=== PATIENT | female | born 1950 | race Caucasian/White ===

== ENCOUNTER → 2018-01-07 07:21 | Outpatient (CLI) | payer MEDICARE, SELFPAY ==
--- NOTE | 2018-01-07 08:00 | CT_ITS ---
CT lung screening EXAM: CT LUNG LOW DOSE WO CONTRAST HISTORY: Asymptomatic, 34 pack-year smoking history ITS.REASON: CURRENT TOBACCO USE ORDERING PHYSICIAN: Maurice Mon MD PATIENT AGE: 67 years COMPARISON: 09/24/2016 TECHNIQUE: The exam was performed on a GE Light Speed [address] scanner using 2.90 mGy CTDI. A low dose helical CT CHEST was performed on a multi-detector scanner. All CT scans at the facility use one or more dose reduction, viz: automated exposure control, ma/kV adjustment per patient size (including targeted exams where dose is matched to indication, i.e. head), or iterative reconstruction technique. The LDCT was performed in a facility that meets the criteria for the screening program. Data regarding this exam was submitted to ACR which is an approved registry. The order for this exam indicates that it came as a result of a lung cancer screening counseling shard decision-making visit that included all the elements required of such a visit including smoking cessation. The radiologist interpreting this exam meets the [facility] criteria for the LDCT lung cancer screening program. The exam is reported using the Lung-RADS classification scale and reported to the ACR registry. NOTE: This study was performed for the specific purposes of lung cancer screening and is not an alternative to diagnostic chest CT. RADIATION DOSE: CTDI vol(CT dose Index-volume) = 2.90mG DLP (Dose Length Product) = 100.18 mGcm FINDINGS: There are centrilobular emphysematous changes. Biapical fibrotic changes are noted. 5 mm ill-defined fissural nodule noted in the right minor fissure. There are scattered fibrotic changes. Groundglass opacity is present in the posterior segment of the right upper lobe not significant changed and may be due to an area of fibrosis. No suspicious pulmonary nodules and no significant change from the previous exam. Incidental note made of hypoattenuating left liver lesions largest at 2.6 cm slightly increased compared to the previous exam. IMPRESSION: 1. Lung RADS Category: 2, benign 2. Other findings: Centrilobular emphysema. Probable hepatic cyst slightly increased in size. Cystic nature may be confirmed with ultrasound RECOMMENDATIONS: 12 month LDCT follow-up Hepatic ultrasound
--- NOTE | 2018-01-07 08:30 | XR_ITS ---
XR DEXA axial skeleton HISTORY: ITS.REASON: OSTEOPAROSIS ORDERING PHYSICIAN: Maurice Mon MD PATIENT AGE: 67 years COMPARISON: None FINDINGS: The BMD measured at the right femoral neck is 0.848 g/cm squared with a T score of -1.4. This is considered Osteopenic according to the World Health Organization criteria. Fracture risk is Moderate. Treatment is advised. IMPRESSION: Osteopenia with moderate fracture risk. Treatment suggested. Recommend follow exam December 2019
--- NOTE | 2018-01-07 09:00 | MM_ITS ---
MM Dig screening mamm BI w/CAD CAD Screening COMPARISON: Digital mammograms with CAD 10/06/2016 04/06/2016 INDICATION: There is no personal or family history of breast cancer TECHNIQUE: Standard CC and MLO images were obtained. R2 CAD reviewed. FINDINGS: Moderate diffuse fiber glandular densities are seen in the central portions of both breast. There is a stable nodular densities in the central portion of the left breast. There is a nodular density superior portion left breast which was seen previously but there has been slight interval increase in size on the current study. It is difficult to definitely localize on the cc view. However I believe the patient should return for spot compression MLO view and 90 degrees lateral view and its this proves to be a true lesion targeted ultrasound may be necessary as well. There is a mole marker right breast. There is no new or suspicious lesion in either breast and no suspicious microcalcifications. IMPRESSION: Moderate breast density with possible change in density upper portion left breast only definitely seen on MLO view BI-RADS Category: 0 Need Additional Imaging Evaluation RECOMMENDED FOLLOW-UP: IMM - IMMEDIATE FOLLOW-UP RECOMMENDED (A letter has been sent to the patient regarding results of the study.)
--- NOTE | 2018-01-07 09:30 | US_ITS ---
US breast LT complete, US breast RT complete INDICATION: Breast cyst ORDERING PHYSICIAN: Maurice Mon MD PATIENT AGE: 67 years COMPARISON: 04/16/2016 TECHNIQUE: Routine breast ultrasound performed with axilla FINDINGS: Left breast: 6 mm cyst at 1:00, 4 mm cyst at 1:00, small nodes in the axilla. No suspicious nodules evident Right breast: 7 x 4 mm cyst at 12:00, 5 mm cyst at 9:00, 6 mm hypoechoic nodule at 10:00 stable since 04/16/2016 small nodes in the right axilla IMPRESSION: Benign appearing bilateral breast cysts and stable hypoechoic nodule at 10:00 in the right breast BI-RADS Category: 2 Benign Finding(s) RECOMMENDED FOLLOW-UP: 1YR - 1 YEAR FOLLOW-UP (A letter has been sent to the patient regarding results of the study.)
== END ==
PROVIDERS: Family Provider Family Medicine; PCP Family Medicine; Visit Provider Family Medicine
DX: Z12.2 Encounter for screening for malignant neoplasm of respiratory organs (principal); Z87.891 Personal history of nicotine dependence; Z12.31 Encounter for screening mammogram for malignant neoplasm of breast; M81.0 Age-related osteoporosis without current pathological fracture
CPT/HCPCS: 76641; 77067; 77080

== ENCOUNTER → 2018-08-18 16:09 | Outpatient (CLI) | payer MEDICARE, SELFPAY ==
--- NOTE | 2018-08-18 16:23 | XR_ITS ---
EXAM: XR cervical spine 5V HISTORY: Neck pain, left-sided neck pain radiating into the shoulder ITS.REASON: DISORDER OF NECK ORDERING PHYSICIAN: Maurice Mon MD PATIENT AGE: 68 years COMPARISON: None FINDINGS: There is straightening of the cervical lordosis. Degenerative disc disease is present at C3 C4, C4 C5, C5 C6, and C6-C7 with osteophytes anteriorly. No lytic or blastic change. Mild facet hypertrophic changes are present from C3 to C6. There are degenerative changes involving the left C1 and C2 lateral mass with hypertrophy and osteophyte formation with osteosclerosis. IMPRESSION: Multilevel cervical spondylosis with degenerative disc disease from C3 to C7 along with facet arthritic change
== END ==
PROVIDERS: PCP Family Medicine; Visit Provider Family Medicine
DX: M53.82 Other specified dorsopathies, cervical region (principal)
CPT/HCPCS: 72050

== ENCOUNTER → 2018-10-11 09:18 | Outpatient (POV) | payer MEDICARE, SELFPAY ==
[2018-10-11 09:29] VITALS: BP 171/79; PULSE 69; RESP 18; O2SAT 98
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
== END ==
PROVIDERS: PCP Family Medicine; Visit Provider Clinical Nurse Specialist Family Health
DX: M47.812 Spondylosis without myelopathy or radiculopathy, cervical region (principal); M54.02 Panniculitis affecting regions of neck and back, cervical region
CPT/HCPCS: 99202

== ENCOUNTER 2018-10-28 09:34 | Day surgery (SDC) | payer MEDICARE, SELFPAY ==
[2018-10-28 09:46] VITALS: BP 156/78; PULSE 70; RESP 18; TEMP 36.8; O2SAT 95; BMI 26.9
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
[2018-10-28 10:08] VITALS: BP 145/91; PULSE 66
[2018-10-28 10:09] VITALS: BP 147/90; PULSE 65; RESP 18; O2SAT 98
[2018-10-28 10:19] VITALS: BP 164/88; PULSE 69; RESP 16; TEMP 36.8; O2SAT 94
== END 2018-10-28 10:20 | disposition home or self-care (01) ==
LOC: SC.PAINP 09:36
PROVIDERS: Visit Provider Anesthesiology
DX: M50.30 Other cervical disc degeneration, unspecified cervical region (principal); M54.02 Panniculitis affecting regions of neck and back, cervical region; M47.892 Other spondylosis, cervical region
CPT/HCPCS: 64490; 64491; 64492; J1030; Q9966

== ENCOUNTER → 2018-11-14 11:17 | Outpatient (POV) | payer MEDICARE, SELFPAY ==
[2018-11-14 11:36] VITALS: BP 146/80; PULSE 70; RESP 18; O2SAT 98; BMI 26.9
--- NOTE | 2018-11-14 11:42 | HMH.PAINSOAP ---
[facility] Pain Management SOAP Note Subjective:: Patient is a pleasant 68-year-old white female who presents today for follow-up after cervical medial branch block. The patient says that she did not receive any relief from the block. She says that she had difficulty tolerating the procedure, and never felt better afterwards. She rates her pain a 8 out of 10 today. The patient says that she feels like there is a knot in her left shoulder area. Says that it feels tight and tense . Is tried anti-inflammatories and home stretching program. Her daughter is a physical therapist and has been doing therapy with her in the home setting. She is also tried a TENS unit with some relief. She has also attempted to use ice and heat to the area. ROS General: no recent weight change, no fever, no sleep disturbances Respiratory: no cough, no shortness of air, no recurring pulmonary infections Cardiovascular/Peripheral Vascular: No chest pain, No palpitations, no edema, no shortness of breath. Gastrointestinal: no incontinence, normal bowel movements reported Genitourinary: no incontinence Musculoskeletal: Left neck pain Psychiatric: normal mood/ affect, [denies depression], [denies anxiety] Neurological: [denies weakness in extremities], [denies balance issues] Objective:: Physical Exam General: Alert and oriented x3, no acute distress, pleasant and cooperative, [on room air] Lungs: Resps E/U, Symmetrical chest expansion, Eyes: PERRL Musculoskeletal: Flexion and extension of cervical spine somewhat guarded secondary to pain, deep tendon reflexes normal, strength in upper and lower extremities [5/5], [abnormal gait noted] Neurological: speech clear, 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 I think the patient would benefit given her symptomology. See the patient after the procedure. Is been instructed to call the office has any concerns prior to her next appointment. She is continuing home stretching program and anti-inflammatories. Dr. Rosario has reviewed this note and agrees with this plan of care. This note was dictated using voice recognition software and may contain errors or omissions
--- NOTE | 2018-11-14 11:47 | P.CONS_ITS ---
[facility] Pain Management SOAP Note Subjective:: Patient is a pleasant 68-year-old white female who presents today for follow-up after cervical medial branch block. The patient says that she did not receive any relief from the block. She says that she had difficulty tolerating the procedure, and never felt better afterwards. She rates her pain a 8 out of 10 today. The patient says that she feels like there is a knot in her left shoulder area. Says that it feels tight and tense . Is tried anti- inflammatories and home stretching program. Her daughter is a physical therapist and has been doing therapy with her in the home setting. She is also tried a TENS unit with some relief. She has also attempted to use ice and heat to the area. ROS General: no recent weight change, no fever, no sleep disturbances Respiratory: no cough, no shortness of air, no recurring pulmonary infections Cardiovascular/Peripheral Vascular: No chest pain, No palpitations, no edema, no shortness of breath. Gastrointestinal: no incontinence, normal bowel movements reported Genitourinary: no incontinence Musculoskeletal: Left neck pain Psychiatric: normal mood/ affect, [denies depression], [denies anxiety] Neurological: [denies weakness in extremities], [denies balance issues] Objective:: Physical Exam General: Alert and oriented x3, no acute distress, pleasant and cooperative, [on room air] Lungs: Resps E/U, Symmetrical chest expansion, Eyes: PERRL Musculoskeletal: Flexion and extension of cervical spine somewhat guarded secondary to pain, deep tendon reflexes normal, strength in upper and lower extremities [5/5], [abnormal gait noted] Neurological: speech clear, firer 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 I think the patient would benefit given her symptomology. See the patient after the procedure. Is been instructed to call the office has any concerns prior to her next appointment. She is continuing home stretching program and anti- inflammatories. Dr. Rosario has reviewed this note and agrees with this plan of care. This note was dictated using voice recognition software and may contain errors or omissions
== END ==
PROVIDERS: PCP Family Medicine; Visit Provider Clinical Nurse Specialist Family Health
DX: M79.18 Myalgia, other site (principal)
CPT/HCPCS: 99212

== ENCOUNTER → 2018-12-13 08:58 | Outpatient (POV) | payer MEDICARE, SELFPAY ==
[2018-12-13 09:12] VITALS: BP 142/67; PULSE 70; RESP 18; O2SAT 98; BMI 26.2
--- NOTE | 2018-12-13 09:18 | HMH.PAINSOAP ---
[facility] Pain Management SOAP Note Subjective:: Patient is a pleasant 68-year-old white female who presents today for follow-up after left trapezius trigger point injections. The patient says that she is doing much better since her injections. She says that these injections were 70% effective for her pain. She does rate her pain a 4 out of 10 today. She states that she has an area in the left side of her neck that is continuing to cause her pain that is radiating into her head and left orbital area. Patient also says that she hears a popping sound when she turns her neck . Patient says the headache worsens at night. The patient is continuing home stretching program, along with anti-inflammatories. She is also using a TENS unit at home, along with ice and heat to the area. Review of Systems General: No recent weight changes, no fever, no sleep disturbances Respiratory: No cough, no shortness of air, no recurring pulmonary infections Cardiovascular/peripheral vascular: No chest pain, no palpitations, no edema, no shortness of breath Gastrointestinal: No new onset incontinence, normal bowel movements reported Genitourinary: No new onset incontinence Musculoskeletal: Neck pain Psychiatric: Normal mood/affect Neurological: [Denies weakness in extremities], [denies balance issues] Objective:: Physical exam General: Alert and oriented x3, no acute distress, pleasant and cooperative, [on room air] Lungs: Respirations even and unlabored, symmetrical chest expansion Eyes: PERRL Musculoskeletal: Flexion and extension of cervical spine somewhat guarded secondary to pain, deep tendon reflexes normal, strength in upper and lower extremities [5/5], normal gait noted Neurological: Speech clear, 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 She will continue anti-inflammatories and NSAIDs. We will see the patient back after her MRI to reassess her symptoms at that time and discussed the plan of care. She been instructed to call the office if she has any concerns prior to her next appointment. The end
--- NOTE | 2018-12-13 09:21 | P.CONS_ITS ---
[facility] Pain Management SOAP Note Subjective:: Patient is a pleasant 68-year-old white female who presents today for follow-up after left trapezius trigger point injections. The patient says that she is doing much better since her injections. She says that these injections were 70% effective for her pain. She does rate her pain a 4 out of 10 today. She states that she has an area in the left side of her neck that is continuing to cause her pain that is radiating into her head and left orbital area. Patient also says that she hears a popping sound when she turns her neck . Patient says the headache worsens at night. The patient is continuing home stretching program, along with anti-inflammatories. She is also using a TENS unit at home, along with ice and heat to the area. Review of Systems General: No recent weight changes, no fever, no sleep disturbances Respiratory: No cough, no shortness of air, no recurring pulmonary infections Cardiovascular/peripheral vascular: No chest pain, no palpitations, no edema, no shortness of breath Gastrointestinal: No new onset incontinence, normal bowel movements reported Genitourinary: No new onset incontinence Musculoskeletal: Neck pain Psychiatric: Normal mood/affect Neurological: [Denies weakness in extremities], [denies balance issues] Objective:: Physical exam General: Alert and oriented x3, no acute distress, pleasant and cooperative, [on room air] Lungs: Respirations even and unlabored, symmetrical chest expansion Eyes: PERRL Musculoskeletal: Flexion and extension of cervical spine somewhat guarded secondary to pain, deep tendon reflexes normal, strength in upper and lower extremities [5/5], normal gait noted Neurological: Speech clear, 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 She will continue anti-inflammatories and NSAIDs. We will see the patient back after her MRI to reassess her symptoms at that time and discussed the plan of care. She been instructed to call the office if she has any concerns prior to her next appointment. The end
== END ==
PROVIDERS: PCP Family Medicine; Visit Provider Clinical Nurse Specialist Family Health
DX: M54.2 Cervicalgia (principal); M79.18 Myalgia, other site
CPT/HCPCS: 99212

== ENCOUNTER → 2018-12-28 07:38 | Outpatient (CLI) | payer MEDICARE, SELFPAY ==
--- NOTE | 2018-12-28 07:42 | MR_ITS ---
MR cervical spine wo con, MR 3-d myelogram/MRCP HISTORY: Neck pain X 1 yr. LT side neck pain that extends down into shoulder and up into left side of head. Constant pain when moving his head. Can only turn head so much. ITS.REASON: NECK PAIN ORDERING PHYSICIAN: Angelica Vides APRN PATIENT AGE: 68 years Comparison: X-RAY 08/18/18 TECHNIQUE: Standard multiplanar multiecho sequences are performed without contrast. 3-D MIP and myelographic images are also rendered and reviewed FINDINGS: There is reversal of the cervical lordosis. The craniocervical junction has an unremarkable appearance. No malalignment is evident. C1-C2: Prominent facet hypertrophic changes are present on the left at C1-C2 and or not imaged in the axial plane C2-C3: Minimal anterolisthesis of C2 of 3 mm with mild bulging disc. C3-C4: 3 mm anterolisthesis of C3 with minimal bulging disc. C4-C5: Degenerative disc disease with minimal bulging disc and ridging posteriorly at the disc space with mild bilateral lateral recess narrowing. C5-C6: Degenerative disc disease with mild bulging disc. There is a small left paracentral annular protrusion with mild left lateral recess and foraminal narrowing. C6-C7: Degenerative disc disease. C7-T1: Unremarkable. IMPRESSION: 1. Reversal cervical lordosis with mild anterolisthesis of C2 on C3 and C3 on C4 with prominent facet hypertrophic changes on the left at C1-C2 not imaged in the axial plane. Multilevel cervical spondylosis. PLEASE SEE ABOVE FOR DETAILED DESCRIPTION AT EACH LEVEL 2. C4-C5: Degenerative disc disease with minimal bulging disc and ridging posteriorly at the disc space with mild bilateral lateral recess narrowing. 3. C5-C6: Degenerative disc disease with mild bulging disc. There is a small left paracentral annular disc protrusion with mild left lateral recess and foraminal narrowing 4. No extruded herniated disc or canal stenosis.
== END ==
PROVIDERS: PCP Family Medicine; Visit Provider Clinical Nurse Specialist Family Health
DX: M54.2 Cervicalgia (principal)
CPT/HCPCS: 72141; 76376

== ENCOUNTER → 2019-01-03 08:57 | Outpatient (POV) | payer MEDICARE, SELFPAY ==
[2019-01-03 09:31] VITALS: BP 121/51; PULSE 67; RESP 18; O2SAT 98; BMI 24.0
--- NOTE | 2019-01-03 09:55 | HMH.PAINSOAP ---
[facility] Pain Management SOAP Note Subjective:: Patient is a pleasant 68-year-old white female who presents today for follow-up after cervical MRI. We discussed her cervical MRI and we also discussed adding some anti-inflammatories to her daily regimen. Patient is interested in doing this. She rates her pain today a 3 out of 10. However over the weekend it got quite extreme most of her pain is achy in nature causing headaches. ROS General: no recent weight change, no fever, no sleep disturbances Respiratory: no cough, no shortness of air, no recurring pulmonary infections Cardiovascular/Peripheral Vascular: No chest pain, No palpitations, no edema, no shortness of breath. Gastrointestinal: no incontinence, normal bowel movements reported Genitourinary: no incontinence Musculoskeletal: Neck pain Psychiatric: normal mood/ affect Neurological: [denies weakness in extremities], [denies balance issues] Objective:: Physical Exam General: Alert and oriented x3, no acute distress, pleasant and cooperative, [on room air] Lungs: Resps E/U, Symmetrical chest expansion, Eyes: PERRL Musculoskeletal: Flexion and extension of cervical spine somewhat guarded secondary to pain, deep tendon reflexes normal, strength in upper and lower extremities [5/5], normal gait noted Neurological: speech clear, special events fundraiser equal, no gross sensory deficits Assessment:: 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 twice daily we will see her back in 1 months and reassess her at that time. She is been instructed to call the office if she has any issues prior to her next appointment. Dr. Rosario has reviewed this note and agrees with this plan of care. This note was dictated using voice recognition software and may contain errors or omissions Pain Management Hx Components *Have you ever received a pneumonia vaccine?: Yes *Have you received a flu vaccine this season?: Yes - *Social History *Occupational Status:: other *Travel in the last 8 weeks: None
--- NOTE | 2019-01-03 09:59 | P.CONS_ITS ---
[facility] Pain Management SOAP Note Subjective:: Patient is a pleasant 68-year-old white female who presents today for follow-up after cervical MRI. We discussed her cervical MRI and we also discussed adding some anti-inflammatories to her daily regimen. Patient is interested in doing this. She rates her pain today a 3 out of 10. However over the weekend it got quite extreme most of her pain is achy in nature causing headaches. ROS General: no recent weight change, no fever, no sleep disturbances Respiratory: no cough, no shortness of air, no recurring pulmonary infections Cardiovascular/Peripheral Vascular: No chest pain, No palpitations, no edema, no shortness of breath. Gastrointestinal: no incontinence, normal bowel movements reported Genitourinary: no incontinence Musculoskeletal: Neck pain Psychiatric: normal mood/ affect Neurological: [denies weakness in extremities], [denies balance issues] Objective:: Physical Exam General: Alert and oriented x3, no acute distress, pleasant and cooperative, [on room air] Lungs: Resps E/U, Symmetrical chest expansion, Eyes: PERRL Musculoskeletal: Flexion and extension of cervical spine somewhat guarded secondary to pain, deep tendon reflexes normal, strength in upper and lower extremities [5/5], normal gait noted Neurological: speech clear, orchestra leader equal, no gross sensory deficits Assessment:: 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 twice daily we will see her back in 1 months and reassess her at that time. She is been instructed to call the office if she has any issues prior to her next appointment. Dr. Rosario has reviewed this note and agrees with this plan of care. This note was dictated using voice recognition software and may contain errors or omissions Pain Management Hx Components *Have you ever received a pneumonia vaccine?: Yes *Have you received a flu vaccine this season?: Yes - *Social History *Occupational Status:: other *Travel in the last 8 weeks: None
== END ==
PROVIDERS: PCP Family Medicine; Visit Provider Clinical Nurse Specialist Family Health
DX: M50.30 Other cervical disc degeneration, unspecified cervical region (principal); M54.02 Panniculitis affecting regions of neck and back, cervical region
CPT/HCPCS: 99212

== ENCOUNTER → 2019-01-16 06:58 | Outpatient (CLI) | payer MEDICARE, SELFPAY ==
[2019-01-16 11:04] LABS: Hemoglobin A1C 6.4 % (0.0-7.0)
[2019-01-16 17:34] LABS: Alanine Aminotransferase 26 U/L (12-78); Albumin Level 3.5 gm/dL (3.4-5.0); Albumin/Globulin Ratio 1.2 (1.1-1.8); Alkaline Phosphatase 65 U/L (46-116); Anion Gap 9.5 mEq/L (5-15); Aspartate Amino Transferase 14 U/L (15-37); Bilirubin,Total 0.3 mg/dL (0.2-1.0); Blood Urea Nitrogen 18 mg/dL (7-18); Carbon Dioxide 32 mmol/L (21.0-32.0); Chloride 102 mmol/L (98-107); Chol/HDL Ratio 4.1 (1-3.5); Cholesterol 195 mg/dL (140-200); Creatinine,Serum 0.66 mg/dL (0.55-1.02); Estimated Glomerular Filt Rate 89 ml/min (>60); GFR (African American) 108 ML/MIN (>60); Glucose 116 mg/dL (74-106); HDL Cholesterol 48 mg/dL (29-89); LDL Cholesterol 113 mg/dL (0-130); Potassium 4.5 mmoL/L (3.5-5.1); Sodium 139 mmol/L (136-145); Thyroid Stimulating Hormone 3.78 uIU/ml (0.358-3.740); Total Protein,Serum 6.5 gm/dL (6.4-8.2); Triglycerides 168 mg/dL (30-200); VLDL Cholesterol 34 mg/dL (0-40)
[2019-01-16 20:37] LABS: Creatinine,Urine Random 56 mg/dL (20-320)
[2019-01-18 00:25] LABS: Vitamin D 25 Hydroxy 35.3 ng/mL (30.0-100.0)
[2019-01-18 00:28] LABS: Microalbumin, Urine 5.4 ug/mL (Not Estab.)
== END ==
PROVIDERS: Visit Provider Family Medicine
DX: R73.01 Impaired fasting glucose (principal); I10 Essential (primary) hypertension; K76.89 Other specified diseases of liver; M81.0 Age-related osteoporosis without current pathological fracture
CPT/HCPCS: 36415; 80053; 80061; 82043; 82570; 82652; 83036; 84443

== ENCOUNTER → 2019-01-18 07:17 | Outpatient (CLI) | payer MEDICARE, SELFPAY ==
--- NOTE | 2019-01-18 08:00 | US_ITS ---
PROCEDURE: US ABDOMEN LIMITED CLINICAL INDICATION: LIVER CYSTS Multiple liver lesions COMPARISON: ABDPELW/O CT ABD PELVIS W/O CONTRAST from 07/24/[address] lung screening from 01/07/2018 FINDINGS: PANCREAS: Unremarkable. No obvious mass or abnormal fluid collection. No ductal dilatation LIVER: There are multiple hyperechoic foci within the liver including a 2.6 cm and a 1.2 cm hyperechoic foci in the left lobe. These may represent hemangiomas due to their hyperechoic nature. RIGHT KIDNEY: Unremarkable. Normal size and echogenicity. No hydronephrosis GALLBLADDER: No gallstones, gallbladder wall thickening, pericholecystic fluid, or biliary dilatation. IMPRESSION: Hepatic lesions correspond a hyperechoic nodules and may represent hemangiomas. Consider confirmation with MRI with hemangioma protocol without and with enhancement due to the slight increase in size. Dictated by: Guero Calderon MD 01/18/2019 17:43 Signed by: <Electronically signed by Guero Calderon MD in [place]> 01/18/2019 17:43
== END ==
PROVIDERS: PCP Family Medicine; Visit Provider Family Medicine
DX: K76.89 Other specified diseases of liver (principal)
CPT/HCPCS: 76705

== ENCOUNTER → 2019-01-24 12:07 | Outpatient (CLI) | payer MEDICARE, SELFPAY ==
--- NOTE | 2019-01-24 12:22 | US_ITS ---
PROCEDURE: MM DIG MAMM BI DX W/CAD CLINICAL INDICATION: ABNORMAL MAMM Follow-up abnormal mammogram COMPARISON: [facility] DIG MAMM-SCREEN IVANIA from 03/15/2013 [facility] DIG MAMM-SCREEN IVANIA from 04/03/2015 [facility]B DIG MAMM-SCREEN IVANIA from 04/06/2016 [facility] DIG MAMM-DX IVANIA W/CAD from 10/06/2016 BREASTRT US breast RT complete from 01/07/2018 [facility] MM Dig screening mamm BI w/CAD from 01/07/2018 BREASTLT US breast LT complete from 01/07/2018 US BREAST LT COMPLETE from 01/24/2019 US BREAST RT COMPLETE from 01/24/2019 TECHNIQUE: Standard images are performed along with spot compression views and bilateral breast ultrasound and compared to multiple previous exams FINDINGS: Right breast: Asymmetric density is present in the retroareolar region slightly inferior. This has been present dating back to 04/06/2016 and partially compresses out and is likely related to fibroglandular tissue. Asymmetric densities in the lateral and medial aspect of the right breast appear to compress out is fibroglandular tissue and not felt to be significantly changed Right breast ultrasound: 4 mm x 6 mm cyst at 12 o'clock. Oval hypoechoic 7 mm abnormality at 9 o'clock not significantly changed. No suspicious nodules evident. There is an area at 10 o'clock which is 5 x 3 mm hypoechoic and may be related to fibroglandular tissue. Left breast: Nodular density is present in the upper aspect of the left breast at 11 mm similar to multiple previous exams. There is asymmetric density in the central left breast on the MLO view. Stable nodular density is present in the central left breast posteriorly at 7 mm. Nodular density noted laterally at 9 mm unchanged Left breast ultrasound: At 12 o'clock there is a hypoechoic nodule at 1 x 0.4 cm and may represent a complex cyst. At 1 o'clock there is a 5 mm hypoechoic nodule suggestive of a small cyst. At 2 o'clock there is an 8 mm. IMPRESSION: There are bilateral stable nodular opacities with multiple small bilateral cyst on the mammogram. No suspicious lesions are evident. There is a new nodular density in the central aspect of the left breast which may correspond to a complex cyst noted on the ultrasound at 12 o'clock. Recommend six-month mammographic and sonographic follow-up of the left breast. BI-RAD Category: 3 Probably Benign Finding Short Term Follow-up FOLLOW-UP: 6M 6 Month Follow-up (A letter has been sent to the patient regarding results of the study.) The all right at delivery rarely checks the colon with an acute thank you appreciate you walk held and the the the Dictated by: Guero Calderon MD 01/27/2019 11:59 Signed by: <Electronically signed by Guero Calderon MD in [place]> 01/27/2019 11:59
--- NOTE | 2019-01-24 12:31 | CT_ITS ---
PROCEDURE: CT LUNG SCREENING CLINICAL INDICATION: CURRENT TOBACCO USE Thirty-four pack-year smoking history, asymptomatic for lung cancer COMPARISON: LUNGSCREEN CT lung screening from 01/07/2018 TECHNIQUE: The exam was performed on a [employer] Speed [address] scanner using 2.90 mGy CTDI. A low dose helical CT CHEST was performed on a multi-detector scanner. All CT scans at the facility use one or more dose reduction, viz: automated exposure control, ma/kV adjustment per patient size (including targeted exams where dose is matched to indication, i.e. head), or iterative reconstruction technique. The LDCT was performed in a facility that meets the criteria for the screening program. Data regarding this exam was submitted to ACR which is an approved registry. The order for this exam indicates that it came as a result of a lung cancer screening counseling shard decision-making visit that included all the elements required of such a visit including smoking cessation. The radiologist interpreting this exam meets the CMS criteria for the LDCT lung cancer screening program. The exam is reported using the Lung-RADS classification scale and reported to the ACR registry. NOTE: This study was performed for the specific purposes of lung cancer screening and is not an alternative to diagnostic chest CT. RADIATION DOSE: CTDI vol(CT dose Index-volume) = 2.90mG DLP (Dose Length Product) = 96.38 mGcm FINDINGS: COPD with scattered scarring. Ground-glass opacity right upper lobe posteriorly unchanged. Chronic volume loss in the medial aspect of the lingula unchanged no suspicious nodules. There are several low-density lesions in the left hepatic lobe which may be due to cyst the largest of which is 2.7 cm not significantly changed. OTHER FINDINGS: No other pertinent findings evident. IMPRESSION: Lung rads category 2 benign findings with no change Recommendations: 12 month LDCT follow-up Dictated by: Guero Calderon MD 01/29/2019 12:42 Signed by: <Electronically signed by Guero Calderon MD in [place]> 01/29/2019 12:42
== END ==
PROVIDERS: PCP Family Medicine; Visit Provider Family Medicine
DX: R92.8 Other abnormal and inconclusive findings on diagnostic imaging of breast (principal); Z87.891 Personal history of nicotine dependence; Z12.2 Encounter for screening for malignant neoplasm of respiratory organs
CPT/HCPCS: 76641; 77066

== ENCOUNTER → 2019-01-31 09:20 | Outpatient (POV) | payer MEDICARE, SELFPAY ==
--- NOTE | 2019-01-31 10:13 | HMH.PAINSOAP ---
[facility] Pain Management SOAP Note Subjective:: Patient is a pleasant 69-year-old white female who presents today for follow-up after starting diclofenac 75 mg 1 p.o. twice daily. She states that it helped her significantly she does rate her pain a 5 out of 10 she states that it comes in waves. Some days she has no pain and sedation is worse. She is using moist heat along with additional Tylenol if needed. Patient overall doing quite well. Patient uninterested in a neurosurgical consultation at this time due to the fact that her is ill. ROS General: no recent weight change, no fever, no sleep disturbances Respiratory: no cough, no shortness of air, no recurring pulmonary infections Cardiovascular/Peripheral Vascular: No chest pain, No palpitations, no edema, no shortness of breath. Gastrointestinal: no incontinence, normal bowel movements reported Genitourinary: no incontinence Musculoskeletal: Neck pain Psychiatric: normal mood/ affect Neurological: [denies weakness in extremities], [denies balance issues] Objective:: Physical Exam General: Alert and oriented x3, no acute distress, pleasant and cooperative, [on room air] Lungs: Resps E/U, Symmetrical chest expansion, Eyes: PERRL Musculoskeletal: Flexion and extension of cervical spine somewhat guarded secondary to pain, deep tendon reflexes normal, strength in upper and lower extremities [5/5], normal gait noted Neurological: speech clear, hardware engineer equal, no gross sensory deficits Assessment:: Degenerative disc disease cervical spinal cervical radiculopathy cervical facet arthropathy Plan:: We will continue the patient on diclofenac 75 mg 1 p.o. twice daily. Patient denies side effects or medication. We will see her back in 3 months reassess her symptoms at that time she is been instructed to call the office if she has any issues prior to her next appointment. Dr. Rosario has reviewed this note and agrees with this plan of care. This note was dictated using voice recognition software and may contain errors or omissions Pain Management Hx Components *Have you ever received a pneumonia vaccine?: Yes *Have you received a flu vaccine this season?: Yes - *Social History *Occupational Status:: other *Travel in the last 8 weeks: None
[2019-01-31 11:13] VITALS: BP 153/98; PULSE 67; RESP 18; O2SAT 98; BMI 27.4
== END ==
PROVIDERS: PCP Family Medicine; Visit Provider Clinical Nurse Specialist Family Health
DX: M50.10 Cervical disc disorder with radiculopathy, unspecified cervical region (principal); M12.88 Other specific arthropathies, not elsewhere classified, other specified site
CPT/HCPCS: 99212

== ENCOUNTER → 2019-02-02 08:50 | Outpatient (CLI) | payer MEDICARE, SELFPAY ==
--- NOTE | 2019-02-02 08:55 | MR_ITS ---
PROCEDURE: MR ABDOMEN WO/W CON CLINICAL INDICATION: NEOPLASMS OF UNCERTAIN BEHAVIOR OF LIVER Hemangioma protocol, liver lesion COMPARISON: ABDPELW/O CT ABD PELVIS W/O CONTRAST from 07/24/2013 US ABDOMEN LIMITED from 01/18/2019 CT LUNG SCREENING from 01/24/2019 TECHNIQUE: Routine multiplanar multi echo sequences are performed without and with gadolinium enhancement. Hemangioma protocol performed with dynamic post enhanced images FINDINGS: There are multiple there is liver lesions noted the largest in the left hepatic lobe laterally and superiorly measuring 2.6 cm corresponding to the abnormality noted on the recent chest CT. Just anterior to this is a sub cm area of decreased T1 signal. Peripheral area of decreased T1 signal noted in the right hepatic lobe at 5 mm. There is an additional 1 cm area of decreased intensity on the T1 weighted images in the left hepatic lobe inferiorly. These areas show increased T2 signal with no enhancement. The larger area in the left hepatic lobe shows slight decreased T1 signal and is slightly hypointense on T2 and does not appear to represent a simple cyst. The on the delayed post enhanced images this area does not significantly change. This is well-circumscribed in addition, there is a 1.4 cm area of decreased T1 and increased T2 signal in the right hepatic lobe centrally. There is signal dropout on the out of phase images. No other significant anomalies are evident. IMPRESSION: There are multiple liver lesions. Most of the smaller lesions are felt represent cyst. The larger lesion in the left hepatic lobe at 2.6 cm does not demonstrate normal characteristic signal intensity and imaging characteristics of a hemangioma. This lesion may represent a lipid rich hepatic adenoma. Suggest 6 month follow-up to confirm stability. Dictated by: Guero Calderon MD 02/03/2019 12:13 Electronically signed by Guero Calderon MD in [place] 02/08/2019 14:26
== END ==
PROVIDERS: PCP Family Medicine; Visit Provider Family Medicine
DX: D37.6 Neoplasm of uncertain behavior of liver, gallbladder and bile ducts (principal)
CPT/HCPCS: 74183; A9576

== ENCOUNTER → 2019-08-01 12:23 | Outpatient (CLI) | payer MEDICARE, SELFPAY ==
--- NOTE | 2019-08-01 12:28 | MM_ITS ---
PROCEDURE: MM DIG MAMM DX UNILAT LT CAD Digital Breast Tomosynthesis Included CLINICAL INDICATION: ABNORMAL MAMM Follow-up possible new nodular density left breast COMPARISON: DMDB DIG MAMM-DX IVANIA W/CAD from 10/06/2016 [facility] MM Dig screening mamm BI w/CAD from 01/07/2018 US BREAST LT COMPLETE from 01/24/2019 MM DIG MAMM BI DX W/CAD from 01/24/2019 and ultrasound left breast same date TECHNIQUE: Standard CC and MLO images and 3D Tomosynthesis was obtained. R2 CAD reviewed. FINDINGS: Somewhat heterogenic fibroglandular densities are noted as seen previously. Puma images are most helpful demonstrating a stable nodular density upper outer quadrant possibly an intramammary node. The other possible new density central portion of the breast appears to represent 2 small cystic structures or possibly a solitary complex cyst with septation. There is no suspicious lesion and no suspicious microcalcifications. IMPRESSION: Stable nodularity with no suspicious lesions seen BI-RAD Category: 2 Benign Finding(s) FOLLOW-UP: 6M 6Month Follow-up to return to normal yearly screening schedule (A letter has been sent to the patient regarding results of the study.) Dictated by: Dr. Rahat Foster MD 08/04/2019 09:[address] Rahat Foster MD in [place] 08/04/2019 09:58
--- NOTE | 2019-08-01 12:28 | US_ITS ---
PROCEDURE: US BREAST LT COMPLETE CLINICAL INDICATION: ABNORMAL MAMM COMPARISON: US BREAST RT COMPLETE from 01/24/2019 MM DIG MAMM BI DX W/CAD from 01/24/2019 US BREAST LT COMPLETE from 01/24/2019 MM DIG MAMM DX UNILAT LT CAD from 08/01/2019 FINDINGS: Stable hypoechoic oval lesion 1 o'clock position outer breast measuring 1.0 x 0.6 by 0.8 cm corresponding in size and location to the density on the mammogram same date. This has well-defined borders and internal echoes and likely is a fibroadenoma or possibly intramammary node. There is a tiny hypoechoic lesion at the 1 o'clock position in the nipple too small to characterize but likely a small cyst. IMPRESSION: Stable appearing ultrasound and I feel no additional ultrasound follow-up is indicated Dictated by: Dr. Rahat Foster MD 08/04/2019 13:[address] Rahat Foster MD in [place] 08/04/2019 13:38
== END ==
PROVIDERS: PCP Family Medicine; Visit Provider Family Medicine
DX: R92.8 Other abnormal and inconclusive findings on diagnostic imaging of breast (principal)
CPT/HCPCS: 76641; 77061; 77065; G0279

== ENCOUNTER → 2019-09-25 07:09 | Outpatient (CLI) | payer MEDICARE, SELFPAY ==
[2019-09-25 09:45] LABS: Chloride 100 mmol/L (98-107); Potassium 4.3 mmoL/L (3.5-5.1); Sodium 137 mmol/L (136-145)
[2019-09-25 09:48] LABS: Alanine Aminotransferase 15 U/L (12-78); Albumin Level 3.8 g/dl (3.5-5.0); Albumin/Globulin Ratio 1.4 (1.1-1.8); Alkaline Phosphatase 76 U/L (38-126); Anion Gap 10.3 mEq/L (5-15); Aspartate Amino Transferase 18 U/L (14-36); Bilirubin,Total 0.3 mg/dl (0.2-1.3); Blood Urea Nitrogen 16 mg/dl (7-17); Calcium 9.4 mg/dl (8.4-10.2); Carbon Dioxide 31 mmol/L (22.0-30.0); Cholesterol 173 mg/dl (140-200); Estimated Glomerular Filt Rate 99 ml/min (>60); GFR (African American) 120 ML/MIN (>60); Globulin 2.7 g/dL (1.3-3.2); Glucose 139 mg/dl (74-100); Total Protein,Serum 6.5 g/dl (6.3-8.2); Triglycerides 189 mg/dl (30-150); VLDL Cholesterol 38 mg/dL (0-40)
[2019-09-25 09:49] LABS: Chol/HDL Ratio 2.9 (1-3.5); HDL Cholesterol 59 mg/dl (40-60)
[2019-09-25 10:00] LABS: Direct LDL Cholesterol 110.85 mg/dL (100-129)
[2019-09-26 12:43] LABS: Vitamin D 25 Hydroxy 39.2 ng/mL (30.0-100.0)
== END ==
PROVIDERS: Visit Provider Family Medicine
DX: R73.01 Impaired fasting glucose (principal); I10 Essential (primary) hypertension; E78.1 Pure hyperglyceridemia; M81.0 Age-related osteoporosis without current pathological fracture
CPT/HCPCS: 36415; 80053; 80061; 82652; 83036

== ENCOUNTER → 2020-04-17 12:19 | Outpatient (CLI) | payer MEDICARE, SELFPAY ==
--- NOTE | 2020-04-17 13:00 | MM_ITS ---
PROCEDURE: MM DIG SCREENING MAMM BI W/CAD Digital Breast Tomosynthesis Included CLINICAL INDICATION: SCREENING,LT BREAST CYST No personal or family history of breast cancer. There has been a previous cyst aspiration right breast with findings the patient currently is on Premarin COMPARISON: MG [facility] MM Dig screening mamm BI w/CAD from 01/07/2018 MG MM DIG MAMM BI DX W/CAD from 01/24/2019 MG MM DIG MAMM DX UNILAT LT CAD from 08/01/2019 TECHNIQUE: Standard CC and MLO images and 3D Tomosynthesis was obtained. R2 CAD reviewed. FINDINGS: Moderate diffuse fibroglandular densities are seen in the central portions of breasts. There is a mole marker right breast. There are stable benign-appearing nodular densities left breast best seen on the enedina images.. There is no new or suspicious lesion in either breast and no suspicious microcalcifications IMPRESSION: Fibrofatty parenchyma with no suspicious lesions seen BI-RAD Category: 2 Benign Finding(s) FOLLOW-UP: 1YR 1 Year Follow-up (A letter has been sent to the patient regarding results of the study.) Dictated by: Dr. Rahat Foster MD 04/26/2020 12:36 Dr. Rahat Foster MD in [place] 04/26/2020 12:36
--- NOTE | 2020-04-17 13:02 | US_ITS ---
PROCEDURE: US BREAST LT COMPLETE CLINICAL INDICATION: LT BREAST CYST COMPARISON: US US BREAST LT COMPLETE from 08/01/2019 FINDINGS: Again noted is the hypoechoic oval lesion at the 1 o'clock position outer breast unchanged in size and overall appearance from the previous ultrasound exam 08/01/2019. Other smaller hypoechoic lesion near the nipple 1 o'clock position is stable and unchanged in appearance as well. The other hypoechoic lesion at the 12 o'clock position near the nipple is stable. Again it shows slightly irregular borders but otherwise shows no suspicious characteristics. There are normal appearing nodes in the axilla. IMPRESSION: Stable benign-appearing hypoechoic lesions likely representing either complex cyst or possibly fibroadenomas, no suspicious solid lesion identified. Dictated by: Dr. Rahat Foster MD 05/10/2020 13:01 Dr. Rahat Foster MD in [place] 05/10/2020 13:01
== END ==
PROVIDERS: PCP Family Medicine; Visit Provider Family Medicine
DX: N60.02 Solitary cyst of left breast (principal); Z12.31 Encounter for screening mammogram for malignant neoplasm of breast
CPT/HCPCS: 76641; 77063; 77067

== ENCOUNTER → 2020-12-24 07:56 | Outpatient (CLI) | payer MEDICARE, SELFPAY ==
--- NOTE | 2020-12-24 08:00 | CT_ITS ---
PROCEDURE: CT LUNG SCREENING CLINICAL INDICATION: H/O NICOTINE DEPENDENCE Former smoker Quit smoking 4 months ago 30 pack year smoking history COMPARISON: CT ABDPELW/O CT ABD PELVIS W/O CONTRAST from 07/24/[address] LUNG SCREENING from 01/24/2019 TECHNIQUE: The exam was performed on a [employer] Speed [address] scanner using 2.90 mGy CTDI. A low dose helical CT CHEST was performed on a multi-detector scanner. All CT scans at the facility use one or more dose reduction, viz: automated exposure control, ma/kV adjustment per patient size (including targeted exams where dose is matched to indication, i.e. head), or iterative reconstruction technique. The LDCT was performed in a facility that meets the criteria for the screening program. Data regarding this exam was submitted to ACR which is an approved registry. The order for this exam indicates that it came as a result of a lung cancer screening counseling shard decision-making visit that included all the elements required of such a visit including smoking cessation. The radiologist interpreting this exam meets the CMS criteria for the LDCT lung cancer screening program. The exam is reported using the Lung-RADS classification scale and reported to the ACR registry. NOTE: This study was performed for the specific purposes of lung cancer screening and is not an alternative to diagnostic chest CT. RADIATION DOSE: CTDI vol(CT dose Index-volume) = 2.90mG DLP (Dose Length Product) = 96.38 mGcm FINDINGS: COPD with scattered areas of scarring. Partially calcified nodular density is present in the right lower lobe anteriorly at 8 mm not significantly changed benign-appearing. Faint ground-glass opacity in the right upper lobe unchanged. No suspicious nodule apparent. Atelectatic and/or fibrotic changes are present in the lung bases. OTHER FINDINGS: Hypodense lesions of the liver once again noted not significantly changed IMPRESSION: Lung-RADS Category 2 Benign Appearance or Behavior Follow-up: Continue annual screening with LDCT in 12 months Dictated by: Guero Calderon MD 01/01/2021 08:37 Guero Calderon MD in [place] 01/01/2021 08:37
--- NOTE | 2020-12-24 08:01 | XR_ITS ---
PROCEDURE: XR DEXA AXIAL SKELETON CLINICAL HISTORY: POST MENOPAUSAL COMPARISON: CR DEXAAX XR DEXA axial skeleton from 01/07/2018 FINDINGS: The right hip BMD is 0.642 with a T-score of -1.9. The left hip BMD is 0.836 with a T-score of -0.9. The lumbar spine BMD is 1.184 with a T-score of 1.2. Previously the lowest density was in the right femoral neck with a T-score of -1.4. IMPRESSION: This patient is considered osteopenic according to the World Health Organization criteria. Bone density is between 10 and 25 percent below young normal. Fracture risk is moderate. Treatment is advised. Based on these results a follow-up exam is recommended in 2 year. Dictated by: Guero Calderon MD 12/25/2020 08:43 Guero Calderon MD in [place] 12/25/2020 08:43
== END ==
PROVIDERS: PCP Family Medicine; Visit Provider Nurse Practitioner Family
DX: Z87.891 Personal history of nicotine dependence (principal); Z12.2 Encounter for screening for malignant neoplasm of respiratory organs; Z78.0 Asymptomatic menopausal state
CPT/HCPCS: 71271; 77080

== ENCOUNTER → 2021-05-28 15:18 | Outpatient (CLI) | payer MEDICARE, SELFPAY ==
--- NOTE | 2021-05-28 15:20 | MM_ITS ---
PROCEDURE INFORMATION: Exam: MG Bilateral Screening 3D Mammography Exam date and time: 05/28/2021 3:20 PM Age: 71 years old Clinical indication: Encounter for screening mammogram for malignant neoplasm of breast TECHNIQUE: Imaging protocol: Bilateral screening tomosynthesis and 2D mammography including computer-aided detection (CAD) when performed. COMPARISON: 1. MG MM DIG SCREENING MAMM BI W/CAD 04/17/2020 1:07 PM 2. MG MM DIG MAMM DX UNILAT LT CAD 08/01/2019 1:39 PM FINDINGS: MAMMOGRAPHY: Breast composition: The breast tissue is heterogeneously dense, which may obscure small masses. Mass: None. Architectural distortion: None. Calcifications: No suspicious calcifications. Asymmetric density: None. Skin thickening: None. Axillary adenopathy: None. IMPRESSION: No mammographic evidence of malignancy. Annual screening is recommended unless otherwise clinically indicated. ASSESSMENT: BI-RADS Category 1: Negative
== END ==
PROVIDERS: PCP Family Medicine; Visit Provider Family Medicine
DX: Z12.31 Encounter for screening mammogram for malignant neoplasm of breast (principal)
CPT/HCPCS: 77063; 77067

== ENCOUNTER → 2022-12-28 12:18 | Outpatient (CLI) | payer MEDICARE, SELFPAY ==
--- NOTE | 2022-12-28 12:23 | MM_ITS ---
PROCEDURE INFORMATION: Exam: MG Bilateral Screening 3D Mammography Exam date and time: 12/28/2022 12:45 PM Age: 72 years old Clinical indication: Screening examination TECHNIQUE: Imaging protocol: Bilateral Screening tomosynthesis and 2D mammography including computer-aided detection (CAD) when performed. COMPARISON: 1. MG MM DIG SCREENING MAMM BI W/CAD 05/28/2021 3:32 PM 2. MG MM DIG SCREENING MAMM BI W/CAD 04/17/2020 1:07 PM FINDINGS: MAMMOGRAPHY: Breast composition: The breasts are heterogeneously dense, which may obscure small masses. Mass: None. Architectural distortion: None. Calcifications: No suspicious calcifications. Asymmetric density: None. Skin thickening: None. Axillary adenopathy: None. IMPRESSION: No mammographic evidence of malignancy. Annual screening is recommended unless otherwise clinically indicated. A ASSESSMENT: BI-RADS Category 1: Negative
== END ==
PROVIDERS: PCP Family Medicine; Visit Provider Family Medicine
DX: Z12.31 Encounter for screening mammogram for malignant neoplasm of breast (principal)
CPT/HCPCS: 77063; 77067

== ENCOUNTER 2023-12-27 13:29 | Outpatient (CLI) | payer MEDICARE, SELFPAY ==
--- NOTE | 2023-12-27 13:33 | MM_ITS ---
PROCEDURE INFORMATION: Exam: MG Bilateral Screening 3D Mammography Exam date and time: 12/27/2023 1:23 PM Age: 73 years old Clinical indication: Screening mammogram TECHNIQUE: Imaging protocol: Bilateral Screening tomosynthesis and 2D mammography including computer-aided detection (CAD) when performed. COMPARISON: 1. MG MM DIG SCREENING MAMM BI W/CAD 12/28/2022 12:45 PM 2. MG MM DIG SCREENING MAMM BI W/CAD 05/28/2021 3:32 PM 3. MG MM DIG SCREENING MAMM BI W/CAD 04/17/2020 1:07 PM 4. MG MM DIG MAMM DX UNILAT LT CAD 08/01/2019 1:39 PM FINDINGS: MAMMOGRAPHY: Breast composition: There are scattered areas of fibroglandular density. Mass: None. Architectural distortion: No new or suspicious architectural distortion. Calcifications: No new or suspicious calcifications are present Asymmetric density: No new or suspicious asymmetric density is present Skin thickening: None. Axillary adenopathy: None. IMPRESSION: No mammographic evidence of malignancy. Recommend annual screening mammography unless otherwise clinically indicated. ASSESSMENT: BI-RADS category 1: Negative.
== END 2023-12-27 23:59 | disposition home or self-care (01) ==
LOC: RAD 13:29
PROVIDERS: PCP Family Medicine; Visit Provider Family Medicine
DX: Z12.31 Encounter for screening mammogram for malignant neoplasm of breast (principal)
CPT/HCPCS: 77063; 77067